=== PATIENT | male | born 1985 | race African-American/Black ===

== ENCOUNTER 2020-06-21 10:43 | Emergency (ER) | payer BC ==
[2020-06-21 11:32] LABS: HEMOGLOBIN 14.7 g/dl (14.0-18.0); IMMATURE GRANULOCYTES 0.2 % (0.0-5.0); MEAN CELL VOLUME 89.8 fL CALC (80.0-100.0); MEAN CORPUSCULAR HGB 28.7 pG CALC (26.0-32.0); NEUT# 7.18 thou/uL (1.82-7.42); RED BLOOD COUNT 5.12 mill/uL (4.70-6.10); RED CELL DISTRI WIDTH 11.7 % (11.5-15.5)
[2020-06-21 11:51] LABS: ALBUMIN 4.7 g/dL (3.2-5.0); ALKALINE PHOSPHATASE 83 u/l (38-126); ANION GAP 12 (6-22 (CALC)); BILIRUBIN, TOTAL 0.7 mg/dL (0.0-1.4); BUN 15 mg/dL (9-20); BUN/CREATININE RATIO 12 (12-20 (CALC)); CARBON DIOXIDE 29 mmol/l (22-30); CHLORIDE 103 mmol/l (95-108); CREATININE 1.2 mg/dL (0.7-1.3); GFR > 60 ML/MIN (>=60 (CALC)); GFR FOR AFR.AMER. > 60 ML/MIN (>=60 (CALC)); LIPASE 39 u/l (23-300); POTASSIUM 4.2 mmol/l (3.5-5.1); SGOT/AST 20 u/l (17-59); SODIUM 140 mmol/l (137-146); TOTAL PROTEIN 8.6 g/dL (6.3-8.2)
[2020-06-21] MEDS ORDERED: ONDANSETRON4 MG PO (12:11)
[2020-06-21 12:30] VITALS: BP 138/90
== END 2020-06-21 12:30 | disposition home or self-care (01) | DRG 392 ==
LOC: ED 10:43
PROVIDERS: Family Medicine
DX: R10.84 Generalized abdominal pain (principal)